=== PATIENT | male | born 1960 | race Caucasian/White ===

== ENCOUNTER 2019-03-05 15:06 | Emergency (ER) | payer OTHER ==
[2019-03-05] MEDS: IBUPROFEN 600 MG TAB PO (15:57)
== END 2019-03-05 16:53 | disposition home or self-care (01) ==
LOC: FTE 15:06
DX: S62.316B Displaced fracture of base of fifth metacarpal bone, right hand, initial encounter for open fracture (principal); W18.39XA Other fall on same level, initial encounter; Y92.89 Other specified places as the place of occurrence of the external cause
CPT/HCPCS: 29125; 73130-RT; 99283-25